=== PATIENT | female | born 1965 | race Two or more races ===

== ENCOUNTER 2018-01-27 10:02 | Emergency (ER) | payer OTHER ==
[~2018-01-27] VITALS: Ht 157.5 cm; Wt 104.3 kg
[2018-01-27] MEDS ORDERED: VENTOLIN HFA18 GM (10:27)
[2018-01-27] MEDS ORDERED: NEURONTIN600 MG (10:27)
[2018-01-27] MEDS ORDERED: PEPCID20 MG (10:27)
== END 2018-01-27 15:21 | disposition home or self-care (01) ==
LOC: ER 10:02
DX: J06.9 Acute upper respiratory infection, unspecified (principal)

== ENCOUNTER 2018-03-22 08:08 | Emergency (ER) | payer OTHER ==
[~2018-03-22] VITALS: Ht 157.5 cm; Wt 104.3 kg
[~2018-03-22 08:08] MED LIST: NEURONTIN600 MG; PEPCID20 MG; VENTOLIN HFA18 GM
== END 2018-03-22 13:05 | disposition home or self-care (01) ==
LOC: ER 08:08
DX: S00.83XA Contusion of other part of head, initial encounter (principal); X58.XXXA Exposure to other specified factors, initial encounter; Y93.89 Activity, other specified; Y92.89 Other specified places as the place of occurrence of the external cause; Y99.8 Other external cause status

== ENCOUNTER → 2018-04-11 | Outpatient (CLI) | payer OTHER | END | disposition home or self-care (01) | LOC: SONOGRAMA 11:19 | DX: M75.122 Complete rotator cuff tear or rupture of left shoulder, not specified as traumatic (principal) ==

== ENCOUNTER 2019-05-03 10:17 | Emergency (ER) | payer OTHER ==
[~2019-05-03] VITALS: Ht 157.5 cm
[2019-05-03] MEDS ORDERED: ZANTAC300 MG (10:38)
== END 2019-05-03 13:51 | disposition home or self-care (01) ==
LOC: ER 10:17
DX: K52.9 Noninfective gastroenteritis and colitis, unspecified (principal)